=== PATIENT | male | born 1995 | race Two or more races ===

== ENCOUNTER 2018-10-07 19:11 | Emergency (ER) | payer OTHER ==
[~2018-10-07] VITALS: Ht 182.9 cm; Wt 100.9 kg
[2018-10-07 19:33] VITALS: BP 139/82
== END 2018-10-07 20:14 | disposition home or self-care (01) ==
LOC: ED 19:45
DX: S46.312A Strain of muscle, fascia and tendon of triceps, left arm, initial encounter (principal); F17.200 Nicotine dependence, unspecified, uncomplicated; Z90.49 Acquired absence of other specified parts of digestive tract; X58.XXXA Exposure to other specified factors, initial encounter; Y93.B9 Activity, other involving muscle strengthening exercises; Y92.39 Other specified sports and athletic area as the place of occurrence of the external cause; Y99.8 Other external cause status
CPT/HCPCS: 99283